=== PATIENT | male | born 2000 | race Two or more races ===

== ENCOUNTER 2024-10-02 17:42 | Emergency (ER) | payer OTHER, SELFPAY ==
[2024-10-02 17:58] VITALS: BP 135/78; PULSE 76; RESP 19; TEMP 37; O2SAT 99; BMI 31.9
--- NOTE | 2024-10-02 18:11 | PD.EDSKIN ---
ED Skin Abcess FB-RME/HPI General Chief complaint: Skin/Abscess/Foreign Body Stated complaint: LAC ABOVE LEFT EYE TODAY Time Seen by Provider: 10/02/24 18:05 Source: patient Arrival date/time: 10/02/24 17:42 24-year-old male no significant past medical history presents emergency department complaining of laceration above left eye that occurred today while playing as well. Patient reports last tetanus vaccine was back in high school. Mode of arrival: ambulatory Limitations: no limitations Related Data Previous Rx's ?Medication ?Instructions ?Recorded naproxen 500 mg tablet (Naprosyn) 500 mg PO BID PRN pain #30 tabs 11/29/20 Allergies Allergy/AdvReac Type Severity Reaction Status Date / Time No Known Allergies Allergy Verified 10/02/24 17:43 Review of Systems Review of Systems Systems Reviewed: All systems reviewed, normal except as documented Constitutional Constitutional: Reports system reviewed and no additional complaints, except as documented, Denies body ache(s), Denies chills and Denies fever(s) Eyes Eyes: Reports system reviewed and no additional complaints, except as documented and Denies change in vision ENT Ears, Nose, Mouth, and Throat: Reports system reviewed and no additional complaints, except as documented, Denies disequilibrium, Denies dizziness, Denies sore throat and Denies vertigo Cardiovascular Cardiovascular: Reports system reviewed and no additional complaints, except as documented, Denies chest pain and Denies dyspnea Respiratory Respiratory: Reports system reviewed and no additional complaints, except as documented, Denies chest congestion, Denies cough and Denies dyspnea Gastrointestinal Gastrointestinal: Reports system reviewed and no additional complaints, except as documented, Denies abdominal pain, Denies nausea and Denies vomiting Musculoskeletal Musculoskeletal: Reports system reviewed and no additional complaints, except as documented, Denies abnormal gait and Denies arthralgias Integumentary/Breasts Skin/Breast: Reports system reviewed and no additional complaints, except as documented, Denies erythema, Denies rash and Reports wounds Neurologic Neurologic: Reports system reviewed and no additional complaints, except as documented, Denies abnormal gait, Denies disequilibrium, Denies dizziness and Denies vertigo Past Medical History Social History SMOKING STATUS: Never smoker ED Exam General Limitations: Present no limitations General appearance: Present alert and in no apparent distress Head Head exam: Present atraumatic Expanded Head Exam Head image: 1. 1 cm laceration Eye Eye exam: Present normal appearance, PERRL and EOMI ENT ENT exam: Present normal exam, normal oropharynx and mucous membranes moist Neck Neck exam: Present normal inspection, full ROM and trachea midline Chest Chest inspection: Present normal inspection and symmetric chest wall rise Respiratory Respiratory exam: Present normal lung sounds bilaterally Cardiovascular Cardiovascular exam: Present regular rate, normal rhythm and normal heart sounds Abdominal Exam Abdominal exam: Present soft and normal bowel sounds Extremities Exam Extremities exam: Present normal inspection and full ROM Back Exam Back exam: Present normal inspection and full ROM Neurological Exam Neurological exam: Present alert, oriented X3 and CN II-XII intact Psychiatric Psychiatric exam: Present normal affect and normal mood Skin Skin exam: Present warm, dry and normal color Course Quality Measures none Orders Category Date Time Status Set Up Suture Tray STAT Care 10/02/24 18:14 Active Wound Care [Wound Care] NOW Care 10/02/24 18:14 Active Lidocaine 1% 20 ml [Xylocaine 1% 20 ML] Med 10/02/24 18:14 Discontinued 20 ml INFL X1 ONE Tet,Diphth,Pertuss(Acell)-Tdap [Boostrix Vacc] Med 10/02/24 18:14 Discontinued 0.5 ml IMI .ONCE ONE Vital Signs Vital signs: Vital Signs Temperature 98.6 F 10/02/24 17:58 Pulse Rate 76 10/02/24 17:58 Respiratory Rate 19 10/02/24 17:58 Blood Pressure 135/78 H 10/02/24 17:58 Pulse Oximetry (%) 99 10/02/24 17:58 Oxygen Delivery Method Room Air 10/02/24 17:58 99% room air within normal limits Procedures -ED Laceration Laceration 1: Site: face and other (Left upper eyebrow eyebrow) Side (If applicable): left Size (cm): 1 Description: linear Depth: simple, single layer Local Anesthetic: lidocaine 1% Amount of anesthesia used (mL): 0.5 Pre-repair: wound explored and irrigated extensively Skin layer closed with: other (prolene) Size (cm): 5-0 Number of sutures: 3 Technique: simple, interrupted Skin / Abscess / Foreign Body MDM Narrative MDM Narrative:: 24-year-old male no significant past medical history presents emergency department complaining of laceration above left eye that occurred today while playing as well. Patient reports last tetanus vaccine was back in high school. Tetanus vaccine provided. Verbal consent obtained. Laceration cleansed with normal saline. 1 mL of 1% lidocaine used as local anesthetic and using 5-0 Prolene 3 simple interrupted sutures were used to approximate wound. Patient tolerated well. Patient instructed to monitor for signs of infection. Patient data External records reviewed:: [facility] previous records Clinical information provided by:: patient Social determinants that could affect healthcare access:: none Patient has the following chronic illnesses:: None How is presenting disease/condition affected by chronic disease/condition?: no chronic disease Evaluation data The following diagnostics were reviewed and interpreted by me:: other (specify) (N/A) Lab and/or radiology exams considered but not ordered:: N/A Interpretation Summary: N/A Medications / Prescriptions Medications or Prescriptions considered but not ordered:: Ordered Medication administrations:: Medication Administration History Discontinued Medications Diphtheria/Tetanus/Acell Pertussis (Diphth,Pertuss(Acell),Tet Vac 0.5 Ml Vial) 0.5 ml IMi .ONCE ONE Stop: 10/02/24 18:15 Last Admin: 10/02/24 18:19 Dose: 0.5 ml Documented By: Lidocaine HCl (Lidocaine Hcl 1% 20 Ml Vial) 20 ml INFL X1 ONE Stop: 10/02/24 18:15 Last Admin: 10/02/24 18:18 Dose: 20 ml Documented By: Given Consultations Consultation(s) initiated? (list below): No Diagnosis Skin/Abscess Differential Diagnosis: abscess of skin or subcutaneous tissue Most likely diagnosis given after review of the tests above:: Laceration of eyebrow left Admission Indicated Admission indicated?: not indicated Admission Request Was there a request for admission?: No Disposition Plan Disposition Plan: Discharge Discharge Attestation Discharge Attestation: The patient and all family members were given an opportunity to ask questions and understood the discharge instructions. Discharge instructions specifically effects, indications for sooner follow up or return to the emergency department, and the expected course of current diagnosis. Patient condition: Stable Discharge Plan Plan Patient Disposition: HOME (Self Care) Disposition Comment: Stable Prescriptions/Referrals Prescriptions/Med Rec: No Action naproxen [Naprosyn] 500 mg tablet 500 mg PO BID PRN (Reason: pain) Qty: 30 0RF Problem List Clinical Impression: Laceration of eyebrow, left Patient/Caregiver Discharge Instructions Education Materials: ED Laceration: All Closures Additional Instructions: Keep wound covered for the first 24 hours due to bleeding. After 24 hours may wash with warm water and soap and keep open to air clean and dry. Return to emergency department or primary care provider's office in 5 to 7 days for suture removal. Return to emergency department for any signs of infection or as needed. Print Language: Kiswahili Stand Alone Forms: [facility] Award Info., Patient Portal Info Letter PA/TELEVISION PRESENTER Supervising Physician PA/TELEVISION PRESENTER Supervising Physician: Dr. Farah
[2024-10-02] MEDS: LIDOCAINE HCL 1% 20 ML VIAL INFL (18:18)
[2024-10-02] MEDS: DIPHTH,PERTUSS(ACELL),TET VAC 0.5 ML VIAL IMi (18:19)
== END 2024-10-02 19:00 | disposition home or self-care (01) ==
PROVIDERS: Emergency Provider Emergency Medicine
DX: S01.112A Laceration without foreign body of left eyelid and periocular area, initial encounter (principal); Z23 Encounter for immunization
CPT/HCPCS: 12001; 90471; 90715; 99283; J3490